=== PATIENT | female | born 1990 | race Caucasian/White ===

== ENCOUNTER 2022-10-05 09:44 | Outpatient (CLI) | payer OTHER, SELFPAY ==
[2022-10-05 13:39] LABS: Free T4 Free Thyroxine 0.93 ng/mL (0.78-2.19)
== END 2022-10-05 09:45 | disposition home or self-care (01) ==
LOC: ANHWCLAB 09:48
PROVIDERS: Visit Provider Internal Medicine Endocrinology, Diabetes & Metabolism
DX: E03.9 Hypothyroidism, unspecified (principal)
CPT/HCPCS: 36415; 84439; 84443